=== PATIENT | male | born 1975 | race Caucasian/White ===

== ENCOUNTER 2017-05-08 12:37 | Inpatient (IN) | payer BC ==
[2017-05-08] VITALS (15 sets, daily range): BP systolic 99–178; BP diastolic 59–141
[~2017-05-08] VITALS: Ht 172.7 cm; Wt 112.0 kg
[2017-05-08] MEDS ORDERED: SODIUM CHLORIDE 0.9% 1,000 ML IV ONE ×2 (12:50→14:15)
[2017-05-08 13:27] LABS: HEMOGLOBIN. 15.8 g/dL (14.0-18.0); MEAN CORPUSCULAR HEMOGLOBIN 30.5 pg (28.0-32.0); MEAN CORPUSCULAR VOLUME 92.8 fL (80.0-94.0); MEAN PLATELET VOLUME 10.6 fl (7.4-10.4); PLATELET 177 x1000/uL (130-400); RED BLOOD CELL COUNT 5.17 mill/uL (4.7-6.1); RED CELL DISTRIBUTION WIDTH 15.2 % (11.6-14.6)
[2017-05-08 13:33] LABS: CHLORIDE 109 mEq/L (98-107)
[2017-05-08 13:34] LABS: PROTHROMBIN TIME 10.2 sec (9.4-11.6)
[2017-05-08 13:44] LABS: PLATELET ESTIMATE NORMAL
[2017-05-08] MEDS ORDERED: INSULIN REGULAR (DRIP) 100 UNITS in SODIUM CHLORIDE 0.9% 100 ML IV ONE ×2 (14:15→14:45)
[2017-05-08] MEDS ORDERED: LORAZEPAM 2MG/ML CPJ IV PRN (15:00)
[2017-05-08] MEDS ORDERED: IPRATROPIUM/ALBUTEROL 0.5-3(2.5)MG/3ML NEB HHN PRN (15:00)
[2017-05-08] MEDS ORDERED: DEXTROSE 50% WATER 50ML SYRINGE IV PRN ×2 (15:00)
[2017-05-08] MEDS ORDERED: MAGNESIUM/ALUMINUM HYDROXIDE/SIMETHICONE 30ML UDC PO PRN (15:30)
[2017-05-08] MEDS ORDERED: ACETAMINOPHEN 325MG TABLET PO PRN (15:30)
[2017-05-08] MEDS ORDERED: GUAIFENESIN 200MG/10ML SUGAR FREE UDC PO PRN (15:30)
[2017-05-08] MEDS ORDERED: DIPHENHYDRAMINE 50MG/ML VIAL IV PRN (15:30)
[2017-05-08] MEDS ORDERED: ONDANSETRON HCL 4MG/2ML VIAL IV PRN (15:30)
[2017-05-08] MEDS ORDERED: KETOROLAC 15MG/ML VIAL IV PRN (15:30)
[2017-05-08] MEDS ORDERED: DOCUSATE SODIUM 100MG CAPSULE PO PRN (15:30)
[2017-05-08] MEDS ORDERED: NA PHOS,M-B/NA PHOS,DI-BA ENEMA 118ML PR PRN (15:30)
[2017-05-08] MEDS ORDERED: IPRATROPIUM/ALBUTEROL 0.5-3(2.5)MG/3ML NEB INH PRN (15:30)
[2017-05-08] MEDS ORDERED: LORAZEPAM 0.5MG TABLET PO PRN (15:30)
[2017-05-08] MEDS ORDERED: POTASSIUM CHLORIDE 20MEQ TABLET SR PO NR (15:30)
[2017-05-08] MEDS ORDERED: NITROGLYCERIN 0.4MG TABLET SL SL PRN (15:30)
[2017-05-08 15:53] LABS: BG BASE EXCESS -27.6 mmol/L (-2.0-2.0); BG CARBOXYHEMOGLOBIN 0.5 % (0.5-1.5); BG DEOXYHEMOGLOBIN 1.6 % (0.0-5.0); BG FRACTION INSPIRED OXYGEN 21; BG HCO3 ACT 2.7 mmol/L (22.0-26.0); BG METHEMOGLOBIN 0.5 % (0.0-1.5); BG OXYGEN SATURATION 98.4 % (92.0-98.5); BG OXYHEMOGLOBIN 97.4 % (94.0-97.0); BG PCO2 12.2 mmHg (35.0-45.0); BG PO2 147.4 mmHg (75.0-100.0); BG SAMPLE SITE RIGHT BRACHIAL; BG TOTAL HEMOGLOBIN 15.7 g/dL (12.0-18.0); BG VENT MODE ROOM AIR
[2017-05-08] MEDS ORDERED: SODIUM BICARBONATE 8.4% 1 MEQ/ML 50ML SYR IV NR ×2 (16:00→16:45)
[2017-05-08 16:03] LABS: CLARITY URINE CLOUDY (CLEAR); COLOR URINE YELLOW (YELLOW); KETONES URINE 4+ (NEGATIVE); LEUKOCYTE ESTERASE URINE NEGATIVE (NEGATIVE); NITRITE URINE NEGATIVE (NEGATIVE); OCCULT BLOOD URINE 2+ (NEGATIVE); PROTEIN URINE 2+ (NEGATIVE); SPECIFIC GRAVITY URINE 1.024 (1.005-1.030); UROBILINOGEN URINE 0.2 E.U./dL (0.2-1.0)
[2017-05-08 16:15] LABS: *AMPHETAMINES SCREEN URINE NEGATIVE (NEGATIVE); *BARBITURATES SCREEN URINE NEGATIVE (NEGATIVE); *BENZODIAZEPINES SCREEN URINE NEGATIVE (NEGATIVE); *COCAINE SCREEN URINE NEGATIVE (NEGATIVE); CANNABINOID URINE SCREEN NEGATIVE (NEGATIVE); METHADONE URINE SCREEN NEGATIVE (NEGATIVE); OPIATES URINE SCREEN NEGATIVE (NEGATIVE); PHENCYCLIDINE URINE SCREEN NEGATIVE (NEGATIVE)
[2017-05-08] MEDS ORDERED: BLOOD SUGAR DIAGNOSTIC STRIP TEST SCH (16:30)
[2017-05-08] MEDS ORDERED: INSULIN REGULAR (DRIP) 100 UNITS in SODIUM CHLORIDE 0.9% 100 ML IV SCH (17:00)
[2017-05-08] MEDS ORDERED: SODIUM BICARBONATE 100 MEQ in DEXTROSE 5% WATER 1,000 ML IV NR ×3 (17:00)
[2017-05-08] MEDS: BLOOD SUGAR DIAGNOSTIC STRIP TEST SCH ×6 (17:30→23:00)
[2017-05-08] MEDS: ENOXAPARIN 40MG/0.4ML SYR SUBCUT SCH (17:36)
[2017-05-08] MEDS: CLONIDINE 0.1MG TABLET PO PRN (17:36)
[2017-05-08] MEDS: SODIUM CHL 0.9% + KCL 20MEQ/L 1,000 ML IV SCH (18:00)
[2017-05-08 19:03] LABS: BG BASE EXCESS -22.3 mmol/L (-2.0-2.0); BG CARBOXYHEMOGLOBIN 0.4 % (0.5-1.5); BG DEOXYHEMOGLOBIN 2.4 % (0.0-5.0); BG FRACTION INSPIRED OXYGEN 21; BG METHEMOGLOBIN 0.3 % (0.0-1.5); BG OXYGEN SATURATION 97.6 % (92.0-98.5); BG OXYHEMOGLOBIN 96.9 % (94.0-97.0); BG PCO2 15.9 mmHg (35.0-45.0); BG PH 7.112 (7.350-7.450); BG PO2 103.6 mmHg (75.0-100.0); BG SAMPLE SITE RIGHT RADIAL; BG VENT MODE ROOM AIR
[2017-05-08] MEDS ORDERED: PIOG45TA5 PO (19:08)
[2017-05-08] MEDS ORDERED: METF500T4 PO (19:08)
[2017-05-08] MEDS ORDERED: IBUP-2030 PO (19:08)
[2017-05-08] MEDS ORDERED: ATOR20TA65 PO (19:08)
[2017-05-08] MEDS ORDERED: CEPH500T PO (19:08)
[2017-05-08] MEDS ORDERED: SODIUM CHLORIDE 0.45% 1,000 ML IV ONE (20:15)
[2017-05-08] MEDS ORDERED: SODIUM BICARBONATE 8.4% 1 MEQ/ML 50ML SYR IV SCH (20:15)
[2017-05-08 20:17] LABS: CHLORIDE 122 mEq/L (98-107)
[2017-05-08 20:31] LABS: PHOSPHORUS 0.9 mg/dL (2.5-4.9)
[2017-05-08] MEDS: FAMOTIDINE 20MG/2ML VIAL IV SCH (20:58)
[2017-05-08] MEDS ORDERED: ZOLPIDEM TARTRATE 5MG TABLET PO PRN (21:00)
[2017-05-08] MEDS ORDERED: POTASSIUM PHOS,M-BASIC-D-BASIC 30 MMOL in DEXT 5% WATER 500 ML IV NR (22:00)
[2017-05-09] VITALS (43 sets, daily range): BP systolic 89–176; BP diastolic 50–123
[2017-05-09] MEDS: SODIUM CHL 0.9% + KCL 20MEQ/L 1,000 ML IV SCH (00:40)
[2017-05-09] MEDS: BLOOD SUGAR DIAGNOSTIC STRIP TEST SCH ×14 (01:00→21:39)
[2017-05-09 05:34] LABS: HEMATOCRIT. 39.5 % (42.0-52.0); HEMOGLOBIN. 13.6 g/dL (14.0-18.0); MEAN CORPUSCULAR HEMOGLOBIN 30.6 pg (28.0-32.0); MEAN CORPUSCULAR VOLUME 88.7 fL (80.0-94.0); MEAN PLATELET VOLUME 10.2 fl (7.4-10.4); PLATELET 151 x1000/uL (130-400); RED BLOOD CELL COUNT 4.45 mill/uL (4.7-6.1); RED CELL DISTRIBUTION WIDTH 14.7 % (11.6-14.6)
[2017-05-09 05:53] LABS: CHLORIDE 121 mEq/L (98-107)
[2017-05-09 06:15] LABS: PHOSPHORUS 0.9 mg/dL (2.5-4.9)
[2017-05-09 08:42] LABS: BG CARBOXYHEMOGLOBIN 0.4 % (0.5-1.5); BG DEOXYHEMOGLOBIN 5.2 % (0.0-5.0); BG FRACTION INSPIRED OXYGEN 21; BG HCO3 ACT 14.8 mmol/L (22.0-26.0); BG METHEMOGLOBIN 0.1 % (0.0-1.5); BG OXYGEN SATURATION 94.8 % (92.0-98.5); BG OXYHEMOGLOBIN 94.3 % (94.0-97.0); BG PCO2 30.1 mmHg (35.0-45.0); BG PH 7.311 (7.350-7.450); BG PO2 66.6 mmHg (75.0-100.0); BG SAMPLE SITE RIGHT RADIAL; BG VENT MODE ROOM AIR
[2017-05-09] MEDS: POTASSIUM CHLORIDE 20MEQ TABLET SR PO SCH (08:50)
[2017-05-09] MEDS: FAMOTIDINE 20MG/2ML VIAL IV SCH ×2 (08:50→21:44)
[2017-05-09] MEDS ORDERED: DEXT 5% WATER + KCL 20MEQ/L 1,000 ML IV SCH (09:00)
[2017-05-09] MEDS ORDERED: DEXTROSE 50% WATER 50ML SYRINGE IV PRN (10:30)
[2017-05-09] MEDS ORDERED: POTASSIUM PHOS,M-BASIC-D-BASIC 30 MMOL in DEXT 5% WATER 500 ML IV NR (11:00)
[2017-05-09 11:08] LABS: PLATELET ESTIMATE NORMAL
[2017-05-09] MEDS: DEXT 5%/0.45% NACL 1000ML 1,000 ML IV SCH (11:15)
[2017-05-09] MEDS: INSULIN GLARGINE UD 100 UNITS/ML SYR SUBCUT SCH (12:25)
[2017-05-09] MEDS: INSULIN LISPRO 100 UNITS/ML SUBCUT SCH ×4 (12:26→17:04)
[2017-05-09] MEDS: ENOXAPARIN 40MG/0.4ML SYR SUBCUT SCH (17:56)
[2017-05-10] VITALS (10 sets, daily range): BP systolic 127–165; BP diastolic 76–111
[2017-05-10] MEDS: CLONIDINE 0.1MG TABLET PO PRN ×2 (02:41→23:16)
[2017-05-10] MEDS: DEXT 5%/0.45% NACL 1000ML 1,000 ML IV SCH (03:44)
[2017-05-10] MEDS: BLOOD SUGAR DIAGNOSTIC STRIP TEST SCH ×4 (06:24→21:21)
[2017-05-10 08:52] LABS: BASOPHILS % 0.5 % (0.0-2.0); HEMOGLOBIN. 12.9 g/dL (14.0-18.0); LYMPHOCYTES % 19.5 % (20.0-50.0); MEAN CORPUSCULAR HEMOGLOBIN 30.4 pg (28.0-32.0); MEAN CORPUSCULAR VOLUME 87.1 fL (80.0-94.0); MONOCYTES % 13.4 % (2.0-8.0); NEUTROPHILS % 66.6 % (40.0-76.0); PLATELET 137 x1000/uL (130-400); RED BLOOD CELL COUNT 4.25 mill/uL (4.7-6.1); RED CELL DISTRIBUTION WIDTH 15.1 % (11.6-14.6)
[2017-05-10 09:06] LABS: CHLORIDE 112 mEq/L (98-107)
[2017-05-10] MEDS: FAMOTIDINE 20MG/2ML VIAL IV SCH ×2 (09:07→21:00)
[2017-05-10] MEDS: POTASSIUM CHLORIDE 20MEQ TABLET SR PO SCH (09:07)
[2017-05-10] MEDS: INSULIN GLARGINE UD 100 UNITS/ML SYR SUBCUT SCH (09:58)
[2017-05-10 10:01] LABS: PHOSPHORUS 0.9 mg/dL (2.5-4.9)
[2017-05-10] MEDS: INSULIN LISPRO 100 UNITS/ML SUBCUT SCH ×5 (11:58→21:46)
[2017-05-10] MEDS ORDERED: POTASSIUM PHOS,M-BASIC-D-BASIC 30 MMOL in SODIUM CHLORIDE 0.9% 500 ML IV SCH (12:00)
[2017-05-10] MEDS: ENOXAPARIN 30MG/0.3ML SYR SUBCUT SCH (17:43)
[2017-05-10] MEDS ORDERED: INSULIN GLARGINE UD 100 UNITS/ML SYR SUBCUT SCH (22:00)
[2017-05-11] VITALS: BP 168/103
[2017-05-11 04:00] VITALS: BP 156/95
[2017-05-11] MEDS: CLONIDINE 0.1MG TABLET PO PRN (06:59)
[2017-05-11] MEDS: ENOXAPARIN 30MG/0.3ML SYR SUBCUT SCH (07:00)
[2017-05-11] MEDS: BLOOD SUGAR DIAGNOSTIC STRIP TEST SCH ×2 (07:03→12:50)
[2017-05-11 08:00] VITALS: BP 156/109
[2017-05-11] MEDS: INSULIN LISPRO 100 UNITS/ML SUBCUT SCH ×4 (08:16→13:12)
[2017-05-11] MEDS: POTASSIUM CHLORIDE 20MEQ TABLET SR PO SCH (08:19)
[2017-05-11] MEDS: FAMOTIDINE 20MG/2ML VIAL IV SCH (08:19)
[2017-05-11] MEDS: INSULIN GLARGINE UD 100 UNITS/ML SYR SUBCUT SCH (10:17)
[2017-05-11 12:00] VITALS: BP 146/92
[2017-05-11] MEDS ORDERED: LISINOPRIL 20MG TABLET PO NR (12:30)
[2017-05-11 13:31] LABS: BASOPHILS % 0.7 % (0.0-2.0); EOSINOPHILS % 0.7 % (0.0-5.0); HEMATOCRIT. 35.7 % (42.0-52.0); HEMOGLOBIN. 12.8 g/dL (14.0-18.0); LYMPHOCYTES % 35.7 % (20.0-50.0); MEAN CORPUSCULAR HEMOGLOBIN 30.7 pg (28.0-32.0); MEAN CORPUSCULAR VOLUME 85.4 fL (80.0-94.0); MEAN PLATELET VOLUME 9.8 fl (7.4-10.4); MONOCYTES % 12.7 % (2.0-8.0); NEUTROPHILS % 50.2 % (40.0-76.0); PLATELET 148 x1000/uL (130-400); RED BLOOD CELL COUNT 4.18 mill/uL (4.7-6.1); RED CELL DISTRIBUTION WIDTH 14.5 % (11.6-14.6)
[2017-05-11 13:42] VITALS: BP 146/92
[2017-05-11 14:21] LABS: CHLORIDE 105 mEq/L (98-107)
== END 2017-05-11 15:20 | disposition home or self-care (01) | DRG 637 ==
LOC: ER 13:31 → MICUSO 14:37 → ENRESERV 15:22 → 6EST 05-10 10:50
PROVIDERS: ADMIT Internal Medicine; ATTEND Internal Medicine
DX: E11.10 Type 2 diabetes mellitus with ketoacidosis without coma (principal); J96.00 Acute respiratory failure, unspecified whether with hypoxia or hypercapnia; E44.0 Moderate protein-calorie malnutrition; E83.51 Hypocalcemia; K31.84 Gastroparesis; E87.2 Acidosis; D72.829 Elevated white blood cell count, unspecified; E11.43 Type 2 diabetes mellitus with diabetic autonomic (poly)neuropathy; E66.9 Obesity, unspecified; I10 Essential (primary) hypertension; Z79.84 Long term (current) use of oral hypoglycemic drugs; Z79.899 Other long term (current) drug therapy; Z68.37 Body mass index [BMI] 37.0-37.9, adult
CPT/HCPCS: 36415; 36600; 71045; 80053; 80061; 80305; 81003; 82375; 82805; 82962; 83036; 84100; 85025; 85610; 93005; 96361; 96374; 99291; J1650; J1815; J1885; J2405; J3480; J3490; J7030; J7040; J7050; J7060; J7070